=== PATIENT | male | born 1985 | race Hispanic/Latino ===

== ENCOUNTER 2018-05-22 13:23 | Emergency (ER) | payer BC ==
[2018-05-22 14:37] LABS: #Basophils 0.1 thou/uL (0.0-0.2); #Eosinphils 0.1 thou/uL (0.0-0.7); #Monocytes 0.7 thou/uL (0.11-0.59); #Neutrophils 4.6 thou/uL (1.40-6.50); %Basophils 1.3 % (0.0-1.0); %Lymphocytes 26.9 % (21.0-51.0); %Neutrophils 61.9 % (42.0-75.0); Hemoglobin 16.1 g/dL (14.0-18.0); Mean Corpuscular HGB CONC 34.5 g/dL (32.0-36.0); Mean Corpuscular Hemoglobin 32.1 pg (27.0-31.0); Mean Platelet Volume 7.7 fL (7.4-10.4); Platelet Count 315 thou/uL (130-400); Red Blood Cell (RBC) Count 5.02 mill/uL (4.70-6.10); White Blood Cell (WBC) Count 7.4 thou/uL (4.8-10.8)
[2018-05-22] MEDS ORDERED: ISOVUE-370 76%-LOCM 1 ML ONE (14:48)
[2018-05-22] MEDS ORDERED: Ondansetron PF 4 MG/2 ML Vial ONE (14:55)
[2018-05-22] MEDS ORDERED: Morphine 4 MG/ML VIAL ONE (14:55)
[2018-05-22 15:02] LABS: ALT (SGPT) 48 U/L (8-55); AST (SGOT) 27 U/L (5-34); Albumin 4.5 g/dL (3.5-5.0); Alkaline Phosphatase 98 U/L (40-150); Anion Gap 12 mmol/L (10-20); BUN (Urea Nitrogen) 17 mg/dL (8.9-20.6); Bilirubin, Total 0.6 mg/dL (0.2-1.2); Calc. Creatinine Clearance 0 mL/min (70-130); Calcium 9.5 mg/dL (7.8-10.44); Carbon Dioxide 26 mmol/L (22-29); Chloride 103 mmol/L (98-107); Estimated GFR-MDRD 87; Globulin 3.1 g/dL (2.4-3.5); Glucose 127 mg/dL (70-105); Lipase 27 U/L (8-78); Protein, Total 7.6 g/dL (6.0-8.3); Sodium 137 mmol/L (136-145)
--- NOTE | 2018-05-22 15:30 | CT ---
CT Abdomen Pelvis W Con History: [Abdominal pain. Right lower quadrant pain.] Comparison: None. Findings: Mild atelectasis in the lung bases. No pericardial effusion. The appendix is visualized and is normal. Initial examination is limited due to motion artifact and the exam was reperformed. The spleen, liver , gallbladder, pancreas appear normal. The aortoiliac contour is nonaneurysmal. No hydronephrosis. No acute osseous abnormality. No dilated loops of large or small bowel. No retroperitoneal adenopathy. Urinary bladder is unremarka ble. No free intraperitoneal gas or fluid. Small focus of gas along the left SI joint likely degenera tive in nature. Impression: No acute intra-abdominal abnormality. Normal appendix.
[2018-05-22 16:53] LABS: Bilirubin Negative (Negative); Blood, Urine Negative (Negative); Clarity CLEAR (Clear); Glucose, Urine (Dipstick) Negative (Negative); Leukocyte Negative (Negative); Nitrite Negative (Negative); Protein, Urine (Dipstick) Negative (Neg-Trace)
[2018-05-22 16:59] LABS: Specific Gravity, Urine 1.057 (1.002-1.036)
[2018-05-22] MEDS ORDERED: Dicyclomine 20 MG TAB ONE (17:18)
[2018-05-22] MEDS ORDERED: Metoclopramide HCl 10 MG/2 ML VIAL ONE (17:18)
== END 2018-05-22 17:52 | disposition home or self-care (01) ==
LOC: ERS 13:23
DX: R11.2 Nausea with vomiting, unspecified (principal); R10.31 Right lower quadrant pain; Z87.891 Personal history of nicotine dependence
CPT/HCPCS: 36415; 74177; 80053; 81003; 83690; 85025; 96361; 96365; 96375; J2270; J2405; J2765; Q9966

== ENCOUNTER 2020-12-11 11:58 | Emergency (ER) | payer OTHER, SELFPAY ==
[~2020-12-11 11:58] MED LIST: Iopamidol-370 76% 500 ML 1 ML ONE
[2020-12-11] MEDS ORDERED: Ondansetron PF 4 MG/2 ML Vial ONE (12:13)
[2020-12-11] MEDS ORDERED: Morphine 4 MG/ML VIAL ONE (12:13)
[2020-12-11 12:34] LABS: #Basophils 0.1 thou/uL (0.0-0.2); #Eosinphils 0.1 thou/uL (0.0-0.7); #Lymphocytes 2.2 thou/uL (1.20-3.40); #Monocytes 0.6 thou/uL (0.11-0.59); #Neutrophils 4.9 thou/uL (1.40-6.50); %Basophils 0.8 % (0.0-1.0); %Eosinophils 1.7 % (0.0-10.0); %Lymphocytes 27.6 % (21.0-51.0); %Monocytes 7.8 % (0.0-10.0); %Neutrophils 62.1 % (42.0-75.0); Hemoglobin 15.2 g/dL (14.0-18.0); Mean Corpuscular Hemoglobin 32.3 pg (27.0-31.0); Mean Corpuscular Volume 92.2 fL (78.0-98.0); Mean Platelet Volume 7.9 fL (7.4-10.4); Platelet Count 300 thou/uL (130-400); Red Blood Cell (RBC) Count 4.72 mill/uL (4.70-6.10); White Blood Cell (WBC) Count 7.8 thou/uL (4.8-10.8)
[2020-12-11 12:55] LABS: ALT (SGPT) 25 U/L (8-55); AST (SGOT) 15 U/L (5-34); Albumin 4.3 g/dL (3.5-5.0); Alkaline Phosphatase 116 U/L (40-110); Anion Gap 12 mmol/L (10-20); BUN (Urea Nitrogen) 12 mg/dL (8.9-20.6); Bilirubin, Total 0.5 mg/dL (0.2-1.2); Calc. Creatinine Clearance 0 mL/min (70-130); Calcium 9.3 mg/dL (7.8-10.44); Carbon Dioxide 26 mmol/L (22-29); Chloride 105 mmol/L (98-107); Globulin 2.9 g/dL (2.4-3.5); Glucose 97 mg/dL (70-105); Lipase 43 U/L (8-78); Protein, Total 7.2 g/dL (6.0-8.3); Sodium 139 mmol/L (136-145)
== END 2020-12-11 13:24 | disposition home or self-care (01) ==
LOC: ERS 11:58
DX: S30.1XXA Contusion of abdominal wall, initial encounter (principal); V69.40XA Driver of heavy transport vehicle injured in collision with unspecified motor vehicles in traffic accident, initial encounter
CPT/HCPCS: 36415; 71045; 74177; 80053; 83690; 85025; 96374; 96375; J2270; J2405

== ENCOUNTER 2024-11-29 16:53 | Emergency (ER) | payer SELFPAY ==
[2024-11-29] MEDS ORDERED: Ketorolac Tromethamine 30 MG (1 mL) VIAL ONE (18:03)
== END 2024-11-29 18:48 | disposition home or self-care (01) ==
LOC: ERS 16:53
DX: M25.512 Pain in left shoulder (principal)
CPT/HCPCS: 71045; 96372; J1885